=== PATIENT | female | born 1960 | race Caucasian/White ===

== ENCOUNTER 2024-09-20 01:48 | Emergency (ER) | payer BC, OTHER ==
[2024-09-20] MEDS ORDERED: Sodium Chloride 0.9% 10 ML Syringe FLUSH PRN (02:16)
[2024-09-20] MEDS: diphenhydrAMINE 50 MG/ML SDV IVPUSH ONE (02:32)
[2024-09-20] MEDS: Famotidine 20 MG/2 ML SDV IVPUSH ONE (02:32)
[2024-09-20] MEDS: methylPREDNISolone Sodium Succinate 125 MG/2 ML SDV IVPUSH ONE (02:33)
[2024-09-20] MEDS: Sodium Chloride 0.9% 1,000 ML IV SCH (02:35)
== END 2024-09-20 03:55 | disposition home or self-care (01) ==
LOC: FB.ED 01:48
DX: T78.3XXA Angioneurotic edema, initial encounter (principal); I10 Essential (primary) hypertension; E11.9 Type 2 diabetes mellitus without complications; Z98.890 Other specified postprocedural states; Z79.52 Long term (current) use of systemic steroids; Z79.82 Long term (current) use of aspirin; Z79.84 Long term (current) use of oral hypoglycemic drugs; Z79.899 Other long term (current) drug therapy
CPT/HCPCS: 96361; 96374; 96375; 99284; J1200; J2919; J3490; J7030